=== PATIENT | female | born 1950 | race African-American/Black ===

== ENCOUNTER 2017-02-02 18:52 | Day surgery (SDC) | payer SELFPAY ==
[~2017-02-02] VITALS: Ht 162.6 cm; Wt 62.7 kg
[2017-02-02] VITALS (8 sets, daily range): BP systolic 113–133; BP diastolic 57–68
[2017-02-02 19:05] LABS: EOSINOPHIL (%) 1.9 % (0-5); EOSINOPHIL COUNT 0.1 K/uL (0-0.3); HEMATOCRIT 38.1 % (36.0-46.0); IMMATURE GRANULOCYTE (%) 0.1 % (0.0-0.7); INSTRUMENT ABS NEUTROPHIL CT 2.9 K/uL; LYMPHOCYTE COUNT 3.2 K/uL (1.0-2.8); MCH 29.5 PG (29.0-34.0); MCHC 32.5 G/DL (30.0-36.0); MCV 90.5 FL (83-99); MEAN PLAT.VOLUME 9.4 uM^3 (9.5-12.4); MONOCYTE (%) 7.7 % (3-12); MONOCYTE COUNT 0.5 K/uL (0-0.8); NEUTROPHIL (%) 42.8 % (45-76); NEUTROPHIL COUNT 2.9 K/uL (1.8-6.4); PLATELET COUNT 291 K/uL (156-360); RBC DIS.WIDTH-CV 12.6 % (11.8-14.6); RBC DIS.WIDTH-SD 41.8 % (39-53); RED BLOOD COUNT 4.21 M/uL (3.80-5.20); WHITE BLOOD COUNT 6.9 K/uL (4.1-10.2)
[2017-02-02 19:18] LABS: AMYLASE 66 IU/L (1-118); CHLORIDE 105 mEq/L (99-109); POTASSIUM 3.9 mEq/L (3.7-5.4); SODIUM 140 mEq/L (136-147)
[2017-02-02 19:19] LABS: PROTHROMBIN TIME 9.7 (9.2-11.2); PTT 22.7 (25-32)
[2017-02-02 19:20] LABS: GLUCOSE 105 mg/dL (70-99)
[2017-02-02 19:22] LABS: ANION GAP 9 MEQ/L (2-14)
[2017-02-02 19:23] LABS: SERUM ETHYL ALCOHOL < 10 mg/dL
[2017-02-02 19:24] LABS: GFR ESTIMATE (CALCULATED) 53 mL/min/
[2017-02-02 19:25] LABS: UREA NITROGEN (BUN) 13 mg/dL (9-23)
[2017-02-02 19:27] LABS: LIPASE 14 U/L (1.0-51.0)
[2017-02-02 19:35] LABS: TROP-I INTERPRETATION NEGATIVE; TROPONIN-I < 0.01 ng/mL (0.0-0.30)
[2017-02-02] MEDS ORDERED: LO-DOSE ASPIRIN81 M2 PO (21:42)
[2017-02-02] MEDS ORDERED: LIPITOR40 MG PO (21:42)
[2017-02-02] MEDS ORDERED: METFORMIN HCL500 MG PO (21:43)
[2017-02-02] MEDS ORDERED: FISH OIL 1,0001 EAC7 PO (21:43)
[2017-02-02 22:16] LABS: ADD MIUA? YES; BILIRUBIN NEGATIVE; BLOOD SMALL; COLOR STRAW ((YELLOW)); GLUCOSE (STRIP) NEGATIVE; KETONES NEGATIVE; LEUKOCYTES TRACE; NITRITE NEGATIVE; PROTEIN (STRIP) NEGATIVE; SPECIFIC GRAVITY 1.021 (1.000-1.030); UROBILINOGEN 0.2 MG/DL (0.2-1.0)
[2017-02-02 22:21] LABS: BACTERIA NONE SEEN /HPF; EPITHELIAL CELLS NONE SEEN /HPF; MUCUS NONE SEEN /LPF; RED BLOOD CELLS 0-5 /HPF (0-5); UCUL ADDED? NO; WHITE BLOOD CELLS 0-5 /HPF (0-5)
[2017-02-02 22:23] LABS: POINT-OF-CARE METER ID UU13113781
[2017-02-02 22:30] LABS: AMPHETAMINE NEGATIVE (500 ng/mL); BARBITURATES NEGATIVE (200 ng/mL); BENZODIAZEPINES NEGATIVE (150 ng/mL); COCAINE NEGATIVE (150 ng/mL); INTERNAL CONTROLS VALID? YES; METHADONE NEGATIVE (200 ng/mL); METHAMPHETAMINE NEGATIVE (500 ng/mL); OPIATES (MORPHINE) NEGATIVE (100 ng/mL); OXYCODONE NEGATIVE (100 ng/mL); PHENCYCLIDINE NEGATIVE (25 ng/mL); PROPOXYPHENE NEGATIVE (300 ng/mL); THC CANNABINOIDS NEGATIVE (50 ng/mL); TRICYCLIC ANTIDEPRESSANTS NEGATIVE (300 ng/mL)
[2017-02-03 00:32] VITALS: BP 121/68
[2017-02-03 01:22] LABS: TROP-I INTERPRETATION NEGATIVE; TROPONIN-I < 0.01 ng/mL (0.0-0.30)
[2017-02-03 04:46] VITALS: BP 125/71
[2017-02-03 05:47] LABS: TROP-I INTERPRETATION NEGATIVE; TROPONIN-I < 0.01 ng/mL (0.0-0.30)
[2017-02-03 05:53] LABS: HEMATOCRIT 33.4 % (36.0-46.0); MCH 29.5 PG (29.0-34.0); MCHC 32.6 G/DL (30.0-36.0); MCV 90.5 FL (83-99); MEAN PLAT.VOLUME 9.6 uM^3 (9.5-12.4); PLATELET COUNT 267 K/uL (156-360); RBC DIS.WIDTH-CV 12.6 % (11.8-14.6); RBC DIS.WIDTH-SD 41.8 % (39-53); RED BLOOD COUNT 3.69 M/uL (3.80-5.20); WHITE BLOOD COUNT 5.3 K/uL (4.1-10.2)
[2017-02-03 06:16] LABS: ANION GAP 8 MEQ/L (2-14); CHLORIDE 108 MEQ/L (99-109); GFR ESTIMATE (CALCULATED) > 59 mL/min/; GLUCOSE 116 mg/dL (70-99); POTASSIUM 4.1 MEQ/L (3.7-5.4); SAMPLE HEMOLYSIS CHECK 0; SAMPLE ICTERIC CHECK 0; SAMPLE LIPEMIA CHECK 0; SODIUM 141 MEQ/L (136-147); UREA NITROGEN (BUN) 13 mg/dL (9-23)
[2017-02-03 08:22] VITALS: BP 140/64
[2017-02-03 11:22] VITALS: BP 121/55
[2017-02-03 15:56] VITALS: BP 112/69
== END 2017-02-03 18:14 | disposition home or self-care (01) ==
LOC: EME 18:52 → CATH 19:39 → EME 19:39 → 2SOUTH 20:16 → 4EAST 20:16
PROVIDERS: Emergency Medicine; Hospitalist; Internal Medicine
DX: R07.9 Chest pain, unspecified (principal); I69.320 Aphasia following cerebral infarction; E11.9 Type 2 diabetes mellitus without complications; Z95.0 Presence of cardiac pacemaker; Z79.84 Long term (current) use of oral hypoglycemic drugs; Z79.82 Long term (current) use of aspirin
CPT/HCPCS: 80048; 81003; 82150; 82948; 83690; 84484; 85025; 85027; 85610; 85730; 86900; 86901; 93005; 99281; 99285; C1769; C1887; G0378; G0480; J1644; J1650; J2250; J3010; J7040